=== PATIENT | male | born 1955 | race Caucasian/White ===

== ENCOUNTER 2023-06-22 12:56 | Outpatient (OUT) | payer MEDICARE, BC, SELFPAY ==
--- NOTE | 2023-06-22 13:16 | XR_ITS ---
The [address] [address] Patient Name: EMILY BURGOS MRN: [id number] date: 1955 Sex: M Assigned Patient Location: [facility] Current Patient Location: Accession/Order Number: [id number] Exam Date: 06/22/2023 13:20 Report Date: 06/23/2023 20:51 At the request of: BRENDA MORALES Procedure: XR foot RT min 3V EXAM: XR foot RT min 3V HISTORY: Right Foot Pain COMPARISON: None. FINDINGS: 3 radiographs of the right foot were obtained. No acute fracture or dislocation. Mild to moderate joint space narrowing and osteophytosis to the right foot, most notable at the first tarsal-metatarsal joint space. Os naviculare. Os peroneum. Prominent plantar heel spur. XR/XR foot RT min 3V IMPRESSION: No acute fracture or dislocation. Mild to moderate degenerative changes to the right foot, most notable at the first tarsal-metatarsal joint space. Prominent plantar heel spur. Electronically authenticated by: KERRY SALDIVAR Date: 06/23/2023 20:51
== END 2023-06-22 12:57 | disposition home or self-care (01) ==
LOC: RAD 13:04
PROVIDERS: PCP Nurse Practitioner; Visit Provider Nurse Practitioner
DX: M79.671 Pain in right foot (principal); M25.474 Effusion, right foot; M77.31 Calcaneal spur, right foot
CPT/HCPCS: 73630